=== PATIENT | female | born 1975 | race Caucasian/White ===

== ENCOUNTER 2016-11-21 18:07 | Emergency (ER) | payer OTHER ==
--- NOTE | 2016-11-21 18:22 | PDOC ---
Rapid Medical Evaluation Time Seen by Provider: 11/21/16 18:18 Medical Evaluation: Allergies Allergy/AdvReac Type Severity Reaction Status Date / Time tomato [Tomato] Allergy Intermediate RASH, LIP Verified 11/21/16 18:18 INFLAMMATION;. Aquasonic Ultrasound Gel Allergy Intermediate Hives Uncoded 11/21/16 18:18 11/21/16 18:19 I have performed a brief in-person evaluation of this patient. The patient presents with a chief complaint of: lt psterior and calf pain x 9 days Pertinent physical exam findings: mild non pitting edema when compared laterally. calf tenderness, no erythema, 2+ PULSES AND WARM I have ordered the following: duplex The patient will proceed to fast track for further evaluation.
[2016-11-21 18:23] VITALS: BP 113/67; PULSE 82; TEMP 97.8; BMI 24.2
[2016-11-21] MEDS ORDERED: KETOROLAC TROMETHAMINE 30 MG/1 ML VIAL IM ONE (19:32)
[2016-11-21] MEDS ORDERED: KETOROLAC TROMETHAMINE 30 MG/1 ML VIAL ONE (19:35)
--- NOTE | 2016-11-21 19:45 | PDOC ---
History of Present Illness - General Chief Complaint: Pain Stated Complaint: LT KNEE PAIN Time Seen by Provider: 11/21/16 18:18 - History of Present Illness Initial Comments: 11/21/16 19:42 CHIEF COMPLAINT: left leg pain HISTORY OF PRESENT ILLNESS: 41 yo F with no PMH presents to fast track with pain to left leg x 9 days. Patient reports the pain being to the inside of her knee and that touching it makes it much worse. Patient also states that when she bends her leg it hurts as well. No recent travel or sick contacts. PAST MEDICAL HISTORY: Denies past medical history FAMILY HISTORY: Denies SOCIAL HISTORY: Denies tobacco, alcohol, illicit drug use. SURGICAL HISTORY: ALLERGIES: tomato REVIEW OF SYSTEMS General/Constitutional: Denies fever or chills. Denies weakness, weight change. HEENT: Denies change in vision. Denies ear pain or discharge. Denies sore throat. Cardiovascular: Denies chest pain or shortness of breath. Respiratory: Denies cough, wheezing, or hemoptysis. Gastrointestinal: Denies nausea, vomiting, diarrhea or constipation. Denies rectal bleeding. Genitourinary: Denies dysuria, frequency, or change in urination. Musculoskeletal: Denies joint or muscle swelling or pain. Denies neck or back pain. Skin and breasts: Denies rash or easy bruising. PHYSICAL EXAM General Appearance: Well-appearing, appropriately dressed. No apparent distress , no intoxication. HEENT: EOMI, PERRLA, normal ENT inspection, normal voice, TMs normal, pharynx normal. No conjunctival pallor. No photophobia, scleral icterus. Neck: Supple. Trachea midline. No tenderness, rigidity, carotid bruit, stridor , lymphadenopathy, or thyromegaly. Respiratory/Chest: Lungs CTAB. No shortness of breath, chest tenderness, respiratory distress, accessory muscle use. No crackles, rales, rhonchi, stridor , wheezing, dullness Cardiovascular: RRR. S1, S2. No JVD, murmur, bradycardia, tachycardia. Vascular Pulses: Dorsalis-Pedis (R): 2+, Dorsalis-Pedis (L): 2+ Gastrointestinal/Abdominal: Normal bowel sounds. Abdomen soft, non-distended. No tenderness or rebound tenderness. No organomegaly, pulsatile mass, guarding , hernia, hepatomegaly, splenomegaly. Lymphatic: No adenopathy, tenderness. Musculoskeletal/Extremities: Normal inspection. FROM of all extremities, normal capillary refill. Pelvis Stable. No CVA tenderness. No tenderness to extremities, pedal edema, swelling, erythema or deformity. Integumentary: Appropriate color, dry, warm. No cyanosis, erythema, jaundice or rash Neurologic: mechatronics technician II-XII intact. Fully oriented, alert. Appropriate mood/affect. Motor strength 5/5. No appreciable EOM palsy, facial droop or sensory deficit. Past History - Past Medical History Allergies/Adverse Reactions: Allergies Allergy/AdvReac Type Severity Reaction Status Date / Time tomato [Tomato] Allergy Intermediate RASH, LIP Verified 11/21/16 18:18 INFLAMMATION;. Aquasonic Ultrasound Gel Allergy Intermediate Hives Uncoded 11/21/16 18:18 Home Medications: Ambulatory Orders Vitamins (Sjr) - 1 tab PO DAILY 05/30/16 Ibuprofen [Motrin -] 600 mg PO QID #28 tablet 06/10/16 Acetaminophen [Tylenol] 650 mg PO Q6H PRN #28 tablet 11/21/16 Asthma: No Cancer: No Cardiac Disorders: No Diabetes: No HTN: No Suicide Attempt (Hx): No Seizures: No Thyroid Disease: No Other medical history: none - Reproductive History (#): 1 Para: 0 Therapeutic (s) & number: No - Immunization History Immunization Up to Date: Yes - Psycho/Social/Smoking Cessation Hx Anxiety: No Suicidal Ideation: No Smoking History: Never smoked Have you smoked in the past 12 months: No Information on smoking cessation initiated: No Hx Alcohol Use: No Drug/Substance Use Hx: No Substance Use Type: None Hx Substance Use Treatment: No *Physical Exam - Vital Signs Last Vital Signs Temp Pulse Resp BP Pulse Ox 97.8 F 82 18 113/67 100 11/21/16 18:19 11/21/16 18:19 11/21/16 18:19 11/21/16 18:19 11/21/16 18:19 ED Treatment Course - Medications Given in the ED: ED Medications Discontinued Medications Generic Name Dose Route Start Last Admin Trade Name Freq PRN Reason Stop Dose Admin Ketorolac Tromethamine 30 mg 11/21/16 19:32 11/21/16 19:38 Toradol Injection - IM 11/21/16 19:33 30 mg ONCE ONE Administration Medical Decision Making - Medical Decision Making 11/21/16 20:59 41 yo F with no PMH presents to fast track with pain to left leg. -duplex US ordered in E US negative for DVT. -left knee x-ray to r/o effusion x-ray negative for fracture or effusion -30 mg Toradol IM Patient reassessed; she states the pain has improved greatly and is now walking without discomfort. Advised patient to f/u with orthopedics, referral given. Advised patient of signs and symptoms for return to ER; patient verbalized understanding and agrees to plan. 11/21/16 21:04 *DC/Admit/Observation/Transfer Diagnosis at time of Disposition: Leg pain Qualifiers: Laterality: left Qualified Code(s): M79.605 - Pain in left leg - Discharge Dispostion Disposition: HOME Condition at time of disposition: Stable - Prescriptions Prescriptions: Acetaminophen [Tylenol] 650 mg PO Q6H PRN #28 tablet PRN Reason: Pain - Referrals Referrals: Nhan Huffman MD [Primary Care Provider] - Carlyle Uriostegui MD [Staff Physician] - - Patient Instructions Printed Discharge Instructions: DI for Leg Pain Additional Instructions: Take medication as prescribed and follow-up with orthopedics next week. If you experience any shortness of breath, chest pain, headache, palpitations, loss of sensation to your legs or feet, or any new or worsening symptoms, please return to the ER. Pauline la medicacin segn lo prescrito y sigue con ortopedia la prxima semana. Si experimenta dificultad para respirar, dolor de pecho, dolor de lynette, palpitaciones, prdida de sensibilidad en las piernas o los pies, o cualquier nuevo o empeoramiento de los sntomas, por favor regrese a la unruly de emergencias.
== END 2016-11-21 21:04 | disposition home or self-care (01) ==
LOC: JERFT 18:07
PROC: 3E0233Z Introduction of Anti-inflammatory into Muscle, Percutaneous Approach (ICD-10-PCS; principal; 2016-11-21)
DX: M79.605 Pain in left leg (principal)
CPT/HCPCS: 73562-TC-LT; 84703; 93971-TC; 96372; 99281-25

== ENCOUNTER 2020-10-19 04:35 | Day surgery (SDC) | payer BC ==
[2020-09-17 13:14] VITALS: BMI 27.4
[2020-10-19] MEDS ORDERED: BUPIVACAINE HCL/PF 0.5% (5MG/ML) 10 ML VIAL IJ ONE (13:33)
[2020-10-19] MEDS ORDERED: IOHEXOL 180 MG/1 ML ML IJ ONE (13:33)
[2020-10-19 15:44] VITALS: BP 102/50; PULSE 82; TEMP 98
== END 2020-10-19 15:00 | disposition home or self-care (01) ==
LOC: JASU-SURG 04:35
PROVIDERS: ATTEND Pain Medicine Pain Medicine
PROC: 3E0T33Z Introduction of Anti-inflammatory into Peripheral Nerves and Plexi, Percutaneous Approach (ICD-10-PCS; 2020-10-19)
PROC: 3E0T3BZ Introduction of Anesthetic Agent into Peripheral Nerves and Plexi, Percutaneous Approach (ICD-10-PCS; principal; 2020-10-19 13:30)
DX: M47.812 Spondylosis without myelopathy or radiculopathy, cervical region (principal)
CPT/HCPCS: 81025

== ENCOUNTER 2020-11-30 05:23 | Day surgery (SDC) | payer BC ==
[2020-11-29 10:52] VITALS: BMI 27.2
[2020-11-30] MEDS ORDERED: DEXAMETHASONE SOD PHOSPHATE 4 MG/1 ML VIAL ONE (09:35)
[2020-11-30] MEDS ORDERED: BUPIVACAINE HCL/PF 0.5% (5 MG/ML) 30 ML VIAL IJ ONE (10:35)
[2020-11-30] MEDS ORDERED: IOHEXOL 180 MG/1 ML ML IJ ONE (10:35)
[2020-11-30 11:59] VITALS: BP 108/64; PULSE 72; TEMP 97.1
== END 2020-11-30 11:30 | disposition home or self-care (01) ==
LOC: JASU-SURG 05:23
PROVIDERS: ATTEND Pain Medicine Pain Medicine
PROC: BR14YZZ Fluoroscopy of Cervical Facet Joint(s) using Other Contrast (ICD-10-PCS; 2020-11-30)
PROC: 3E0T3BZ Introduction of Anesthetic Agent into Peripheral Nerves and Plexi, Percutaneous Approach (ICD-10-PCS; principal; 2020-11-30 09:30)
DX: M47.812 Spondylosis without myelopathy or radiculopathy, cervical region (principal)
CPT/HCPCS: 76000-TC-FY; 81025

== ENCOUNTER 2022-02-11 19:52 | Emergency (ER) | payer BC ==
[2022-02-11 20:03] VITALS: BP 101/62; PULSE 92; TEMP 98.4; BMI 28.7
[2022-02-11] MEDS ORDERED: KETOROLAC TROMETHAMINE 30 MG/1 ML VIAL IVPUSH ONE (22:48)
[2022-02-11 23:15] LABS: BASO % 0.4 % (0-2.0); EOS % 1.1 % (0-4.5); HEMOGLOBIN 12.4 GM/dL (10.7-15.3); MCH 29.6 pg (25.7-33.7); MCHC 33.4 g/dl (32.0-36.0); MEAN CELL VOLUME 88.6 fl (80-96); MEAN PLT VOLUME 9.7 fl (7.5-11.1); MONO % 5.1 % (3.8-10.2); NEUT % 59.4 % (42.8-82.8); PLATELET COUNT 172 10^3/uL (134-434); RBC 4.18 M/mm3 (3.60-5.2); RDW 13.1 % (11.6-15.6)
[2022-02-11 23:34] LABS: INR 0.97 (0.83-1.09); PROTHROMBIN TIME (PATIENT) 11.2 SEC (9.7-13.0)
[2022-02-11 23:36] LABS: ACTIVATED PTT 32.7 SECONDS (25.2-36.5)
[2022-02-11 23:43] LABS: CHLORIDE 108 mmol/L (98-107); SODIUM 142 mmol/L (136-145)
[2022-02-11 23:45] LABS: ANION GAP 6 MMOL/L (8-16); BLOOD UREA NITROGEN 11.1 mg/dL (7-18); CALCIUM 8.9 mg/dL (8.5-10.1); CO2 27 mmol/L (21-32); GLUCOSE,RANDOM 101 mg/dL (74-106)
[2022-02-11 23:48] LABS: CREATININE 0.7 mg/dL (0.55-1.3); SGOT/AST 25 U/L (15-37); SGPT/ALT 30 U/L (13-61)
[2022-02-11 23:50] LABS: BILIRUBIN,TOTAL 0.2 mg/dL (0.2-1); TOT PROT 7.4 g/dl (6.4-8.2)
[2022-02-11 23:51] LABS: ALK PHOS 83 U/L (45-117)
[2022-02-11] MEDS ORDERED: KETOROLAC TROMETHAMINE 30 MG/1 ML VIAL ONE (23:51)
== END 2022-02-12 01:09 | disposition home or self-care (01) ==
LOC: JER 19:52
PROC: 3E0333Z Introduction of Anti-inflammatory into Peripheral Vein, Percutaneous Approach (ICD-10-PCS; principal; 2022-02-11)
DX: R07.9 Chest pain, unspecified (principal)
CPT/HCPCS: 36415; 71046-TC-FY; 80053; 84702; 85025; 85379; 85610; 85730; 93005; 93010; 99285-25

== ENCOUNTER 2022-12-23 04:11 | Day surgery (SDC) | payer BC ==
[2022-12-22 09:52] VITALS: BMI 24.7
[~2022-12-23 04:11] MED LIST: ACETAMINOPHEN 500 MG TABLET (FP) PO PRN; BUPIVACAINE HCL/PF 0.5% (5MG/ML) 10 ML VIAL IJ ONE
[2022-12-23 07:49] VITALS: RESP 18
[2022-12-23] MEDS ORDERED: BUPIVACAINE HCL/PF 0.5% (5MG/ML) 10 ML VIAL IJ ONE ×2 (09:13→09:20)
[2022-12-23] MEDS ORDERED: ACETAMINOPHEN 500 MG TABLET (FP) ONE (09:55)
[2022-12-23] MEDS ORDERED: ACETAMINOPHEN 500 MG TABLET (FP) PO ONE (09:55)
[2022-12-23 10:12] VITALS: BP 111/62; PULSE 88; TEMP 97.8
== END 2022-12-23 10:10 | disposition home or self-care (01) ==
LOC: JASU-SURG 04:11
PROVIDERS: ATTEND Pain Medicine Pain Medicine
PROC: 3E0T33Z Introduction of Anti-inflammatory into Peripheral Nerves and Plexi, Percutaneous Approach (ICD-10-PCS; 2022-12-23)
PROC: 3E0T3BZ Introduction of Anesthetic Agent into Peripheral Nerves and Plexi, Percutaneous Approach (ICD-10-PCS; principal; 2022-12-23 09:00)
DX: M47.812 Spondylosis without myelopathy or radiculopathy, cervical region (principal)
CPT/HCPCS: 76000-TC-FY; 81025; J1100

== ENCOUNTER → 2023-02-03 | Day surgery (SDC) | payer BC ==
[2023-01-28 13:58] VITALS: BMI 21.1
[~2023-02-03] MED LIST changes: +BUPIVACAINE HCL/PF 0.5% (5 MG/ML) 30 ML VIAL IJ ONE; +BUPIVACAINE HCL/PF 0.5% (5MG/ML) 10 ML VIAL ONE; +DEXAMETHASONE SOD PHOSPHATE 10 MG/1 ML VIAL IM ONE; +DEXAMETHASONE SOD PHOSPHATE 10 MG/1 ML VIAL ONE; +DEXAMETHASONE SOD PHOSPHATE 4 MG/1 ML VIAL ONE; +LIDOCAINE HCL 1% PRESERVATIVE FREE - 30ML VIAL IJ ONE; +LIDOCAINE HCL 2% (20ML MULTI-DOSE VIAL) ONE; +LIDOCAINE HCL/PF 1% SDV 5ML VIAL ONE; +LIDOCAINE HCL/PF 2% SDV 5ML VIAL INF ONE; +LIDOCAINE HCL/PF 2% SDV 5ML VIAL ONE
[2023-02-03 07:54] VITALS: RESP 18
[2023-02-03 10:43] VITALS: BP 110/66; PULSE 72; TEMP 98.6
== END | disposition home or self-care (01) ==
LOC: JASU-SURG 04:28
PROVIDERS: ATTEND Pain Medicine Pain Medicine
PROC: 01513ZZ Destruction of Cervical Nerve, Percutaneous Approach (ICD-10-PCS; principal; 2023-02-03 10:00)
DX: M47.812 Spondylosis without myelopathy or radiculopathy, cervical region (principal)
CPT/HCPCS: 76000-TC-FY; 81025; J1100

== ENCOUNTER 2023-07-03 17:28 | Emergency (ER) | payer BC ==
[2023-07-03 17:33] VITALS: BP 120/82; PULSE 92; RESP 18; TEMP 97.7; BMI 23.1
[2023-07-03] MEDS ORDERED: ACETAMINOPHEN 1000 MG/100 ML BAG IVPB ONE (18:10)
[2023-07-03] MEDS ORDERED: METOCLOPRAMIDE HCL INJECTION 10 MG/2 ML VIAL IVPUSH ONE (18:10)
[2023-07-03] MEDS ORDERED: SODIUM CHLORIDE 1,000 ML IV STA (18:10)
[2023-07-03] MEDS ORDERED: MECLIZINE HCL 25 MG TABLET (FP) PO ONE (18:29)
[2023-07-03] MEDS ORDERED: MECLIZINE HCL 25 MG TABLET (FP) ONE (18:32)
[2023-07-03] MEDS ORDERED: ACETAMINOPHEN INJECTION 100 ML IVPB ONE (18:32)
[2023-07-03] MEDS ORDERED: METOCLOPRAMIDE HCL INJECTION 10 MG/2 ML VIAL ONE (18:33)
[2023-07-03 19:42] LABS: INR 0.99 (0.83-1.09); PROTHROMBIN TIME (PATIENT) 11.5 SEC (9.7-13.0)
[2023-07-03 19:44] LABS: ACTIVATED PTT 33.5 SECONDS (25.2-36.5)
[2023-07-03 19:46] LABS: BASO % 0.2 % (0-2.0); EOS % 0.1 % (0-4.5); HEMATOCRIT 42.4 % (32.4-45.2); HEMOGLOBIN 13.9 GM/dL (10.7-15.3); LYMPH % 12.5 % (8-40); MCH 29.1 pg (25.7-33.7); MCHC 32.7 g/dl (32.0-36.0); MEAN CELL VOLUME 88.9 fl (80-96); MEAN PLT VOLUME 9.8 fl (7.5-11.1); MONO % 2.5 % (3.8-10.2); NEUT % 84.7 % (42.8-82.8); PLATELET COUNT 178 10^3/uL (134-434); RBC 4.77 M/mm3 (3.60-5.2); RDW 14.1 % (11.6-15.6); WHITE BLOOD COUNT 10.4 K/mm3 (4.0-10.0)
[2023-07-03 19:55] LABS: CHLORIDE 100 mmol/L (98-107); POTASSIUM 4.3 mmol/L (3.5-5.1); SODIUM 135 mmol/L (136-145)
[2023-07-03 19:57] LABS: CALCIUM 9.5 mg/dL (8.5-10.1)
[2023-07-03 19:58] LABS: ALBUMIN 4.4 g/dl (3.4-5.0); ANION GAP 8 mmol/L (4-13); BLOOD UREA NITROGEN 13.2 mg/dL (7-18); CO2 28 mmol/L (21-32); GLUCOSE,RANDOM 117 mg/dL (74-106)
[2023-07-03 20:01] LABS: CREATININE 0.8 mg/dL (0.55-1.3); SGOT/AST 121 U/L (15-37); SGPT/ALT 146 U/L (13-61)
[2023-07-03 20:02] LABS: TOT PROT 8.2 g/dl (6.4-8.2)
[2023-07-03 20:03] LABS: BILIRUBIN,TOTAL 0.4 mg/dL (0.2-1)
[2023-07-03 20:04] LABS: ALK PHOS 97 U/L (45-117)
[2023-07-03 20:49] LABS: PH,URINE 7.5 (5.0-8.0); URINE APPEARANCE CLEAR; URINE BILIRUBIN NEGATIVE (NEGATIVE); URINE COLOR YELLOW; URINE GLUCOSE (UA) NEGATIVE (NEGATIVE); URINE KETONE NEGATIVE (NEGATIVE); URINE LEUK ESTERASE NEGATIVE (NEGATIVE); URINE NITRITE NEGATIVE (NEGATIVE); URINE PROTEIN NEGATIVE (NEGATIVE); URINE UROBILINOGEN 0.2 mg/dL (0.2-1.0)
[2023-07-03 21:16] LABS: HCG,QUALITATIVE URINE NEGATIVE
== END 2023-07-03 22:43 | disposition home or self-care (01) ==
LOC: JERFT 17:28 → JER 17:28 → JERFT 22:43
PROC: 3E033NZ Introduction of Analgesics, Hypnotics, Sedatives into Peripheral Vein, Percutaneous Approach (ICD-10-PCS; principal; 2023-07-03)
PROC: 3E033GC Introduction of Other Therapeutic Substance into Peripheral Vein, Percutaneous Approach (ICD-10-PCS; 2023-07-03)
PROC: 3E0337Z Introduction of Electrolytic and Water Balance Substance into Peripheral Vein, Percutaneous Approach (ICD-10-PCS; 2023-07-03)
DX: R51.9 Headache, unspecified (principal); R11.10 Vomiting, unspecified; R42 Dizziness and giddiness; R10.13 Epigastric pain; K80.20 Calculus of gallbladder without cholecystitis without obstruction; Z20.822 Contact with and (suspected) exposure to COVID-19
CPT/HCPCS: 0241U-QW; 36415; 70450-TC; 76705-TC; 80053; 80307; 81003; 84703; 85025; 85610; 85730; 87086; 99284-25